=== PATIENT | female | born 1965 | race Caucasian/White ===

== ENCOUNTER 2023-08-31 11:20 | Emergency (ER) | payer OTHER, SELFPAY ==
[2023-08-31 11:30] VITALS: BP 111/76
[2023-08-31] MEDS: MOTRIN 600 MG PO (12:07)
[2023-08-31 12:08] VITALS: BMI 17.6
[2023-08-31] MEDS: PERCOCET 5/325 1 TABLET PO (12:08)
--- NOTE | 2023-08-31 12:10 | ED.GENMED ---
History of Present Illness
General
Chief Complaint: Musculo-Skeletal Complaint
Source: patient and spouse
Time Seen by Provider: 08/31/23 11:53
Travel History
Have you had any contact with someone who has COVID-19?: No
Do you have any symptoms of coronavirus? Fever > 100 degrees, chills, cough, shortness of breath, sore throat, loss of taste or smell, muscle aches, or headache?: No
History of Present Illness
History of Present Illness:
57-year-old female presented emergency department for evaluation of left shoulder pain/injury after an accidental fall last night in a hotel room bathroom that they were staying in from a wedding. Patient states she attempted to go to sleep
thinking that the pain would go away but pain worsened overnight with continued difficulty with range of motion prompting them to come to the emergency department today. Patient denies any previous history of injury or surgery in the past. Denies
any focal weakness or numbness, head injuries or any other concerns.
Past History
Past History
ED Past Medical History: COPD and HTN
ED Past Surgical History: Gynecological
Social History
Tobacco: Non-smoker
Alcohol: Occasional
Drug: None
Personal:
Living: with family
Employment: Employed
Review of Systems
Review of Systems
All Other Systems: ROS reviewed and negative except as documented in HPI and ROS
Phy Exam
Physical Exam
Physical Exam:
GENERAL: Alert , in no apparent distress
EYE: conjunctiva clear
Head: Normocephalic atraumatic
NECK: Supple,
ENT: mmm.
LUNGS: no acute respiratory distress
NEUROLOGICAL: Alert and oriented
SKIN: Warm and dry, skin intact.
MUSCULOSKELETAL: Left upper extremity: Obvious deformity of the left proximal humerus. Unable to assess range of motion of the left shoulder secondary to pain. There is no distal humeral tenderness, elbow tenderness, forearm tenderness or wrist
tenderness. Patient has easily palpable radial pulse. Cap refill less than 2 seconds and sensation is grossly intact to light touch. Remainder of extremities are all within normal limits. There is ecchymosis to the proximal humerus.
PSYCH: Normal and appropriate interaction.
Scores
Heart Failure Risk
Heart Failure Risk Score: Not Applicable
Heart Score for Chest Pain Patients
STEMI patient?: Not applicable
Withdrawal Assessment of Alcohol
Withdrawal Assessment Completed?: Not applicable
Course
Orders/Labs/Results
Orders:
Orders
08/31/23 11:35
Shoulder, Left, Trauma CR [CR Shoulder, Trauma - Left] Urgent
Comment:
Reason For Exam: fall
08/31/23 12:00
Sling Left-Treatment ONCE
Ibuprofen [Motrin] 600 mg PO NOW STA
Oxycodone/Acetaminophen [Percocet 5/325] 1 tablet PO NOW STA
08/31/23 12:19
Electrocardiogram (*1) Urgent
Reason for Study: PreOp
EKG- Treatment ONCE
08/31/23 12:28
Complete Blood Count/With Diff Urgent
Abnormal Lab Results
08/31/23
12:28
RBC 2.87 L 10^6/uL
(4.20-5.40)
Hgb 10.3 L g/dL
(12.0-16.0)
Hct 29.5 L %
(37.0-47.0)
MCV 102.8 H fL
(81.0-99.0)
MCH 35.9 H pg
(27.0-31.0)
Lymphocytes % 20.1 L %
(20.5-51.1)
08/31/23 12:28
Vital Signs
Initial and Last Documented VS:
Initial Vital Signs
Temp Pulse Resp BP Pulse Ox
98.4 F 86 16 111/76 100
08/31/23 11:30 08/31/23 11:30 08/31/23 11:30 08/31/23 11:30 08/31/23 11:30
Last Documented Vital Signs
Temp Pulse Resp BP Pulse Ox
98.4 F 86 16 111/76 100
08/31/23 11:30 08/31/23 11:30 08/31/23 11:30 08/31/23 11:30 08/31/23 11:30
MDM/Problems Addressed
Differential Diagnosis Includes:
Proximal humerus fracture, shoulder dislocation, rotator cuff injury
MDM/Problems Addressed:
7-year-old female present emergency department for evaluation of left shoulder injury from an accidental fall last night. X-ray was ordered from triage. Will treat with Percocet and Motrin. Reassessment following
*Radiology
Radiology exam reviewed: preliminary read by ED provider (Proximal humerus fracture with angulation and displacement)
*Pulse Oximetry
Patient hypoxic: no
*Critical Care Note
Total Time (30-74mins, 75-104mins- exclusive of procedures): Not Applicable
Patient Management
Discussion with other providers: Sneller Hand
Escalation/DeEscalation of care consider admission/obs:
Case was reviewed with on-call orthopedic surgeon, Dr. Zepeda, who would like to take the patient to the operating room tomorrow at their outpatient surgical center. He was provided with the patient's telephone number and he will contact them
around 8 AM tomorrow. Will get preoperative CBC and EKG. Orthopedic office staff will contact the patient at 8 AM and notify the patient of where to go and what time. Patient and spouse are in agreement and happy with this plan. Prescription for
Percocet sent to pharmacy. Encouraged to supplement with Motrin for continued pain relief. Patient was placed in a sling for immobilization.
ED Attending Note
-
Portions of this chart may have been created with voice recognition software.� Occasional wrong word or��sound alike� substitutions may have occurred due to the inherent limitations of voice recognition software.
Discharge Plan
Departure
Patient Disposition: Home (Routine Discharge)
Date of Disposition: 08/31/23
Time of Disposition: 12:32
Patient with high blood pressure during this ER visit?: No
Discharge Problem:
Closed fracture of proximal end of left humerus
Instructions: Shoulder Fracture (DC)
Prescriptions:
New
oxycodone-acetaminophen [Percocet] 5-325 mg tablet
1 tab PO Q4HPRN PRN (Reason: pain) Qty: 10 0RF
No Action
hydrocodone-acetaminophen 1 TABLET tablet
1 tab PO Q4HPRN PRN (Reason: pain) Qty: 10 0RF
amoxicillin-pot clavulanate 1 TABLET tablet
1 tab PO NOW Qty: 13 0RF
hydrocodone-acetaminophen [[place]] 1 EACH tablet
1 ea PO Q6 PRN (Reason: Pain) Qty: 8 0RF
Referrals:
Kenan Zepeda MD [Active] -
Akira Jeffries DO [Family Provider] -
Interventions
Interventions:
*Risk Screen - Suicide Last Done: 08/31/23 11:30
*General Assessment Last Done: 08/31/23 11:30
*Neglect/Abuse Screening Last Done: 08/31/23 11:30
ED- Fall Risk Assessment Last Done: 08/31/23 11:40
*ED COVID-19 Vaccine History Last Done: 08/31/23 12:11
*Nursing Disposition Last Done: 08/31/23 12:48
ED-Musculoskeletal Assessment Last Done: 08/31/23 11:40
[2023-08-31 12:41] LABS: % Basophils 0.2 % (0-2); % Eosinophils 0.2 % (0-6); % Immature Granulocytes 0.2 % (0-0.5); % Lymphocytes 20.1 % (20.5-51.1); % Monocytes 7.7 % (1.7-9.3); % Neutrophils 71.6 % (42.2-75.2); Absolute Lymphocytes 1.3 10^3/uL (1.2-3.4); Absolute Monocytes 0.5 10^3/uL (0.1-0.6); Absolute Neutrophils 4.7 10^3/uL (1.4-6.5); Hematocrit 29.5 % (37.0-47.0); Hemoglobin 10.3 g/dL (12.0-16.0); Mean Corp Hgb Conc. 34.9 g/dL (33.0-37.0); Mean Corpuscular Hgb 35.9 pg (27.0-31.0); Mean Corpuscular Volume 102.8 fL (81.0-99.0); Mean Platelet Volume 9.6 fL (7.4-10.4); Nucleated Red Blood Cells % 0 %; Platelet Count 223 10^3/uL (130-400); Red Blood Cell Count 2.87 10^6/uL (4.20-5.40); Red Cell Dist. Width 12.8 % (11.5-14.5); White Blood Cell Count 6.5 10^3/uL (4.8-10.8)
== END 2023-08-31 12:48 | disposition home or self-care (01) ==
LOC: EMR 11:20
PROVIDERS: Physician Assistant Medical; EMERGENCY PHYSICIAN Emergency Medicine; FAMILY PHYSICIAN Family Medicine
DX: S42.202A Unspecified fracture of upper end of left humerus, initial encounter for closed fracture (principal); W19.XXXA Unspecified fall, initial encounter
CPT/HCPCS: 99285; 73030; 85025; 93005